=== PATIENT | male | born 1960 | race Caucasian/White ===

== ENCOUNTER 2020-01-26 17:52 | Emergency (ER) | payer OTHER ==
[2020-01-26 17:58] VITALS: BP 142/92; PULSE 77; RESP 18; TEMP 99
[2020-01-26] MEDS ORDERED: TOPICAL SKIN ADHESIVE 1 EACH AMP TOPICAL STA (18:39)
--- NOTE | 2020-01-26 18:48 | ED ---
General Adult HPI - General Chief complaint: Wound/Laceration Stated complaint: [facility], arm lac Time Seen by Provider: 01/26/20 18:11 Source: patient, RN notes reviewed Mode of arrival: ambulatory Limitations: no limitations - History of Present Illness Initial comments: 59-year-old male presents to the emergency department for a chief, and laceration. Patient states he had his arm on a piece of metal. States his work made him come to be evaluated. States his tetanus is up-to-date past couple years. Denies any difficulty moving his hands or fingers. Patient has no other complaints at this time including shortness of breath, chest pain, abdominal pain, nausea or vomiting, headache, or visual changes. - Related Data Allergies Allergy/AdvReac Type Severity Reaction Status Date / Time No Known Allergies Allergy Verified 01/26/20 17:58 Review of Systems ROS Statement: Those systems with pertinent positive or pertinent negative responses have been documented in the HPI. ROS Other: All systems not noted in ROS Statement are negative. Past Medical History Past Medical History: No Reported History History of Any Multi-Drug Resistant Organisms: None Reported Past Surgical History: Hernia Repair Smoking Status: Current every day smoker Past Alcohol Use History: None Reported Past Drug Use History: None Reported General Exam Limitations: no limitations General appearance: alert, in no apparent distress Head exam: Present: atraumatic, normocephalic, normal inspection Eye exam: Present: normal appearance, PERRL, EOMI. Absent: scleral icterus, conjunctival injection, periorbital swelling ENT exam: Present: normal exam, mucous membranes moist Neck exam: Present: normal inspection, full ROM. Absent: tenderness, meningismus, lymphadenopathy Respiratory exam: Present: normal lung sounds bilaterally. Absent: respiratory distress, wheezes, rales, rhonchi, stridor Cardiovascular Exam: Present: regular rate, normal rhythm, normal heart sounds. Absent: systolic murmur, diastolic murmur, rubs, gallop, clicks Extremities exam: Present: other (2 cm linear lac to the volar aspect of the right arm) Course Vital Signs 01/26/20 17:54 Temperature 99.0 F Pulse Rate 77 Respiratory 18 Rate Blood Pressure 142/92 O2 Sat by Pulse 98 Oximetry Procedures - Laceration Laceration #1 Consent Obtained: verbal consent Indication: laceration Site: upper extremity Size (cm): 2 Description: linear Depth: simple, single layer Size of Sutures: other (exofin) Medical Decision Making - Medical Decision Making Bleeding controlled, wound was cleaned. Exofin was applied. Patient did not want stitches. Tetanus up-to-date already. Patient will follow up with primary care and return for any worsening symptoms. Disposition Clinical Impression: Laceration Disposition: HOME SELF-CARE Condition: Good Instructions (If sedation given, give patient instructions): Laceration (ED), Skin Adhesive Care (ED) Additional Instructions: Please let glue fall off on its own. Follow up with primary care in 1-2 days. Return here to the emergency room for any worsening symptoms. Is patient prescribed a controlled substance at d/c from ED?: No Referrals: Ilene Lyles MD [REFERRING] - 1-2 days Time of Disposition: 19:14
== END 2020-01-26 19:24 | disposition home or self-care (01) ==
LOC: EC 17:52
DX: S41.111A Laceration without foreign body of right upper arm, initial encounter (principal); W22.8XXA Striking against or struck by other objects, initial encounter; Y92.69 Other specified industrial and construction area as the place of occurrence of the external cause
CPT/HCPCS: 12001; 99282